=== PATIENT | male | born 1995 ===

== ENCOUNTER 2018-12-05 09:30 | Day surgery (SDC) | payer SELFPAY ==
[~2018-12-05 09:30] MED LIST: Glycopyrrolate 0.2 MG/ML 5 ML SYRINGE ONE; Lidocaine 1% PF 5 ML VIAL ONE; Ondansetron PF 4 MG/2 ML Vial ONE; PROPOFOL 200 MG/20 ML VIAL ONE; Rocuronium Bromide 10 MG/ML (10ML VIAL) ONE
[2018-12-05] MEDS ORDERED: Ketorolac Tromethamine 30 MG/ML VIAL ONE (09:53)
--- NOTE | 2018-12-05 10:30 | HP ---
HISTORY OF PRESENT ILLNESS: This is a 23-year-old male [employer] student from [place], [place], [facility], has a less than 24-hour history of right lower quadrant pain, who presented to [facility], evaluated by Dr. Eddie Contreras and noted to have a CAT scan positive for appendicitis. No other significant findings were noted. He was transferred this morning for laparoscopic video appendectomy outpatient. ALLERGIES: NONE. SOCIAL HISTORY: Tobacco, none. Alcohol, rarely. MEDICATIONS: None routinely. PAST MEDICAL HISTORY: Noncontributory. PAST SURGICAL HISTORY: Noncontributory. PHYSICAL EXAMINATION: VITAL SIGNS: Temperature 97.1, pulse rate 60, respiratory rate 18, oxygen saturation 98%, blood pressure 137/82. HEAD, EYES, EARS, NOSE, AND THROAT: Unremarkable. LUNGS: Clear to auscultation. CARDIAC: Regular rate and rhythm without murmur or gallop. ABDOMEN: Soft. Tenderness in right lower quadrant with guarding and rebound. Positive Rovsing. LABORATORY DATA: Urinalysis unremarkable. White count 12, hemoglobin 14.3. Liver function tests normal. Sodium 138, potassium 4.0, chloride 99, glucose 99, BUN 18, creatinine 0.9. ASSESSMENT AND PLAN: Acute appendicitis. I would recommend laparoscopic video appendectomy. Risks of infection, bleeding, visceral injury, and open procedure were discussed. He consents, questions answered. Job ID: [id number]
[2018-12-05] MEDS ORDERED: Fentanyl 100 MCG/2 ML VIAL ONE (11:03)
[2018-12-05] MEDS ORDERED: Bupivacaine/Epinephrine 0.25% 30 ML VIAL ONE (11:30)
--- NOTE | 2018-12-05 12:42 | OP ---
DATE OF PROCEDURE: 12/05/2018 PREOPERATIVE DIAGNOSIS: Acute appendicitis. POSTOPERATIVE DIAGNOSIS: Acute appendicitis. PROCEDURE PERFORMED: Laparoscopic video appendectomy. ANESTHESIA: General, local 0.5% Marcaine with epinephrine 30 mL. FINDINGS: Acute appendicitis. DESCRIPTION OF PROCEDURE: The patient was taken to the operating room. Under general anesthesia, Sibley catheter placed at the beginning and removed at the end. Abdomen was clipped of hair, prepared with ChloraPrep, draped in routine fashion. 0.5% Marcaine with epinephrine was infiltrated in the skin and subcutaneous tissue about each port site. Infraumbilical incision was made, pneumoperitoneum to 15 mmHg obtained with a Veress needle, replaced with a 5 port. Laparoscope inserted. Right lateral subcostal incision made and a 5 port placed. Suprapubic incision made and a 12 port placed. Appendix was acutely inflamed. The mesoappendix was taken down with the LigaSure. The stump of the appendix divided with Endo-ADRIANA blue load stapler. Stapled cecal stump was hemostatic and secured as the appendix was removed, submitted to Pathology. Suprapubic fascia was approximated with 0 Vicryl. Area of dissection irrigated, irrigant evacuated. Hemostasis ensured. Irrigant, pneumoperitoneum all removed and all skin incisions closed with interrupted subdermal 4-0 Monocryl and [place] glue applied. Job ID: [id number]
== END 2018-12-05 13:15 | disposition home or self-care (01) ==
LOC: SDC 09:30
PROVIDERS: ATTEND Specialist
PROC: 0DTJ4ZZ Resection of Appendix, Percutaneous Endoscopic Approach (ICD-10-PCS; principal; 2018-12-05)
DX: K35.80 Unspecified acute appendicitis (principal)
CPT/HCPCS: 88304; J0131; J1885; J2001; J2405; J2704; J3010